=== PATIENT | female | born 1945 | race Caucasian/White ===

== ENCOUNTER 2018-08-12 11:54 | Emergency (ER) | payer MEDICARE ==
[2018-08-12 12:02] VITALS: BP 153/72
--- NOTE | 2018-08-12 12:35 | UC ---
Complaint Female HPI - HPI Summary HPI Summary: Noticed increased urge to urinate 3 days ago and had very little urine come out. She also noticed blood when she wiped. Has had Uti in the distant pst and she thinks she has one today - History Of Current Complaint Chief Complaint: UCGU Stated Complaint: BLOOD IN URINE Time Seen by Provider: 08/12/18 11:56 Hx Obtained From: Patient Pain Intensity: 0 Character: Burning Aggravating Factor(s): Urination Alleviating Factor(s): Nothing Associated Signs And Symptoms: Negative: Fever, Back Pain - Allergies/Home Medications Allergies/Adverse Reactions: Allergies Allergy/AdvReac Type Severity Reaction Status Date / Time No Known Allergies Allergy Verified 08/12/18 12:02 Home Medications: Home Medications Cholecalciferol TAB* [Vitamin D TAB*] 2 tab PO DAILY 08/12/18 [History Confirmed 08/12/18] Lisinopril TAB* [Prinivil TAB 5 MG*] 2.5 mg PO DAILY 08/12/18 [History Confirmed 08/12/18] PMH/Surg Hx/FS Hx/Imm Hx Previously Healthy: Yes Cardiovascular History: Hypertension - Surgical History Surgical History: None - Family History Known Family History: Positive: Non-Contributory - Social History Alcohol Use: Weekly Substance Use Type: None Smoking Status (MU): Never Smoked Tobacco Household Exposure Type: Cigarettes Review of Systems All Other Systems Reviewed And Are Negative: Yes Constitutional: Negative: Fever, Chills Skin: Negative: Rash Respiratory: Positive: Negative Cardiovascular: Positive: Negative Genitourinary: Positive: Dysuria, Hematuria, Urgency. Negative: Frequency Musculoskeletal: Negative: Myalgia Neurological: Negative: Weakness Physical Exam Triage Information Reviewed: Yes Appearance: Well-Appearing Vital Signs: Initial Vital Signs Temp 97.4 F 08/12/18 11:58 Pulse 67 08/12/18 11:58 Resp 20 08/12/18 11:58 BP 153/72 08/12/18 11:58 Pulse Ox 99 08/12/18 11:58 Vital Signs Reviewed: Yes Respiratory Exam: Normal Cardiovascular Exam: Normal Abdomen Description: Positive: Nontender. Negative: CVA Tenderness (R), CVA Tenderness (L) Neurological: Positive: Alert Skin: Negative: Rashes Complaint Female Dx - Course Course Of Treatment: Incr. urge to urinate and hematuria x3 days w/ mild dysuria. UA significant for UTI, macrobid for tx and we can call her if the culture shows resistance. exam unremarkable and vitals good aside from elevated BP which she will call her pcp. - Differential Dx/Diagnosis Differential Diagnosis/HQI/PQRI: Ureteral Stone, Urinary Tract Infection Provider Diagnosis: UTI (urinary tract infection) Discharge - Sign-Out/Discharge Documenting (check all that apply): Patient Departure All imaging exams completed and their final reports reviewed: No Studies - Discharge Plan Condition: Good Disposition: HOME Prescriptions: Nitrofurantoin Monohyd/M-Cryst [Macrobid 100 mg Capsule] 100 mg PO BID 7 Days # 14 cap Phenazopyridine TAB* [Pyridium 100 mg TAB*] 100 mg PO TID 3 Days #9 tab Patient Education Materials: Urinary Tract Infection in Women (ED) Referrals: Paul Dick MD [Primary Care Provider] - Additional Instructions: if worsening please return. - Billing Disposition and Condition Condition: GOOD Disposition: Home - Attestation Statements Provider Attestation: I was available for consult. This patient was seen by the BRENAD. The patient was not presented to , seen by or examined by nm -Michele Reed MD
--- NOTE | 2018-08-14 10:32 | ED ---
Progress - Progress Note Progress Note: Prelim urine cx reveals 50-75 e. coli. Pt was started on macrobid. Appropriate tx at this time. Final results pending. Course/Dx - Diagnoses Provider Diagnoses: UTI (urinary tract infection) Discharge - Sign-Out/Discharge Documenting (check all that apply): Post-Discharge Follow Up All imaging exams completed and their final reports reviewed: No Studies - Discharge Plan Condition: Good Disposition: HOME Prescriptions: Nitrofurantoin Monohyd/M-Cryst [Macrobid 100 mg Capsule] 100 mg PO BID 7 Days # 14 cap Phenazopyridine TAB* [Pyridium 100 mg TAB*] 100 mg PO TID 3 Days #9 tab Patient Education Materials: Urinary Tract Infection in Women (ED) Referrals: Paul Dick MD [Primary Care Provider] - Additional Instructions: if worsening please return. - Billing Disposition and Condition Condition: GOOD Disposition: Home
== END 2018-08-12 12:46 | disposition home or self-care (01) ==
LOC: UCEAST 11:54
DX: N39.0 Urinary tract infection, site not specified (principal); B96.20 Unspecified Escherichia coli [E. coli] as the cause of diseases classified elsewhere
CPT/HCPCS: 81003; 87077; 87086; 87186; 99212; G0463

== ENCOUNTER 2019-06-06 09:51 | Emergency (ER) | payer MEDICARE ==
--- NOTE | 2019-06-06 09:56 | UC ---
Complaint Female HPI - HPI Summary HPI Summary: 73 yo female presents with UTI symptoms. She tells me that yesterday morning she developed urinary burning and frequency with bladder pressure. States last UTI was about a year ago with similar symptoms and came here. Old records show e. coli that was pansensitive. She denies fever, chills, abdominal pain, n/v, flank pain, hx of kidney stone, vaginal bleeding or discharge. - History Of Current Complaint Stated Complaint: URINARY ISSUSE Time Seen by Provider: 06/06/19 09:55 Hx Obtained From: Patient Onset/Duration: Sudden Onset Severity Initially: Mild Severity Currently: Mild Pain Intensity: 3 Pain Scale Used: 0-10 Numeric - Allergies/Home Medications Allergies/Adverse Reactions: Allergies Allergy/AdvReac Type Severity Reaction Status Date / Time No Known Allergies Allergy Verified 06/06/19 10:13 Home Medications: Home Medications Cholecalciferol TAB* [Vitamin D TAB*] 2 tab PO DAILY 08/12/18 [History Confirmed 06/06/19] Lisinopril TAB* [Prinivil TAB 5 MG*] 2.5 mg PO DAILY 08/12/18 [History Confirmed 06/06/19] Aspirin EC TAB* [Ecotrin EC Low Dose 81 MG*] 81 mg PO DAILY 10/17/18 [History Confirmed 06/06/19] Ibandronate Sodium 150 mg PO MONTHLY 10/17/18 [History Confirmed 06/06/19] Meclizine TAB* [Antivert 12.5 TAB*] 12.5 mg PO QID PRN 10/17/18 [History Confirmed 06/06/19] Rosuvastatin Calcium 5 mg PO DAILY 10/17/18 [History Confirmed 06/06/19] Cephalexin CAP* [Keflex CAP*] 500 mg PO BID #10 cap 06/06/19 [Rx] PMH/Surg Hx/FS Hx/Imm Hx - Additional Past Medical History Additional PMH: Vertigo Endocrine History: Dyslipidemia Cardiovascular History: Hypertension - Surgical History Surgical History: None - Family History Known Family History: Positive: None - Social History Lives: With Family Alcohol Use: Weekly Substance Use Type: None Smoking Status (MU): Never Smoked Tobacco Household Exposure Type: Cigarettes Review of Systems All Other Systems Reviewed And Are Negative: No Constitutional: Positive: Negative Skin: Positive: Negative Respiratory: Positive: Negative Cardiovascular: Positive: Negative Gastrointestinal: Positive: Negative Genitourinary: Positive: Dysuria, Frequency Neurological/Mental Status: Positive: Negative Psychological: Positive: Negative Physical Exam - Summary Physical Exam Summary: GENERAL: NAD. WDWN. No pain distress. SKIN: No rashes, sores, lesions, or open wounds. NECK: Supple. Nontender. No lymphadenopathy. CHEST: CTAB. No r/r/w. No accessory muscle use. Breathing comfortably and in no distress. CV: RRR. Pulses intact. Cap refill <2seconds ABDOMEN: Soft. NTTP. No distention or guarding. No CVA tenderness. Bowel sounds present NEURO: Alert. PSYCH: Age appropriate behavior. Triage Information Reviewed: Yes Vital Signs: Vital Signs: Temp Pulse Resp BP Pulse Ox 98.6 F 67 15 159/83 100 06/06/19 10:36 06/06/19 10:36 06/06/19 10:36 06/06/19 10:36 06/06/19 10:36 Laboratory Tests 06/06/19 10:06 POC Urine Color Yellow POC Urine Clarity Cloudy POC Urine pH 6.5 POC Ur Specif [place] >= 1.030 POC Urine Protein 2+ A POC Ur Glucose (UA) Negative POC Urine Ketones Negative POC Urine Blood 3+ A POC Urine Nitrite Negative POC Urine Bilirubin Negative POC Urine Urobilinogen 0.2 POC U Leukocyte Esteras 2+ A Vital Signs Reviewed: Yes Complaint Female Dx - Course Course Of Treatment: UA positive will send for culture. Treat with keflex as last UTI was e coli and pansensitive - Differential Dx/Diagnosis Provider Diagnosis: UTI (urinary tract infection) Discharge ED - Sign-Out/Discharge Documenting (check all that apply): Patient Departure All imaging exams completed and their final reports reviewed: No Studies - Discharge Plan Condition: Stable Disposition: HOME Prescriptions: Cephalexin CAP* [Keflex CAP*] 500 mg PO BID #10 cap Patient Education Materials: Urinary Tract Infection in Women (ED) Referrals: Paul Dick MD [Primary Care Provider] - Additional Instructions: If you develop a fever, shortness of breath, chest pain, new or worsening symptoms - please call your PCP or go to the ED immediately. - Billing Disposition and Condition Condition: STABLE Disposition: Home
[2019-06-06 10:37] VITALS: BP 159/83
== END 2019-06-06 10:20 | disposition home or self-care (01) ==
LOC: UCEAST 09:51
DX: N39.0 Urinary tract infection, site not specified (principal); Z87.440 Personal history of urinary (tract) infections; E78.5 Hyperlipidemia, unspecified; I10 Essential (primary) hypertension; Z79.82 Long term (current) use of aspirin; Z79.899 Other long term (current) drug therapy; Z87.898 Personal history of other specified conditions
CPT/HCPCS: 81003; 87086; 99212; G0463